=== PATIENT | male | born 1940 | race Hispanic/Latino ===

== ENCOUNTER 2017-08-21 17:36 | Emergency (ER) | payer MEDICARE, OTHER ==
[2017-08-21] MEDS ORDERED: MOTRIN PO ONE (20:18)
--- NOTE | 2017-08-21 20:23 | Emergency Department Report ---
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 Patient reports that he was in the main lobby today at the hospital and fell on the floor in the hospital while being on the stairs. He reports that there was a cover over the rail and when he grabbed the rail while walking down side ways the cover moved and he fell. Patient complains of pain to both shoulders right ring finger and lower back. Patient also complains of right knee pain. Patient reports he is not sure if he hit his head. Patient denies any loss of consciousness. Patient is accompanied by his granddaughter. Patient has not taken any pain medication since being here. He has a past medical history of diabetes hypertension prostate cancer bone cancer. He has not traveled out of the country last 30 days he has allergies to penicillin and chemotherapy drugs. He is opposed to getting blood products. MD Complaint: fall - Related Data Home Medications Medication Instructions Recorded Confirmed Last Taken Atorvastatin (Nf) [Lipitor (Nf)] 10 mg PO DAILY 10/03/14 10/03/14 Unknown Gabapentin 300 mg PO TID 10/03/14 10/03/14 Unknown Glimepiride [Amaryl] 2 mg PO QAM 10/03/14 10/03/14 Unknown Hydrochlorothiazide 25 mg PO DAILY 10/03/14 10/03/14 Unknown Lipase/Protease/Amylase [Creon Dr 1 each PO TID 10/03/14 10/03/14 Unknown 24,000 Units Capsule] Lisinopril [Zestril] 40 mg PO QDAY 10/03/14 10/03/14 Unknown Metoprolol Xl [Metoprolol 50 mg PO QDAY 10/03/14 10/03/14 Unknown SUCCINATE] Pantoprazole Sodium [Protonix] 40 mg PO PRN PRN 10/03/14 10/03/14 Unknown Previous Rx's Medication Instructions Recorded Last Taken Type Ketorolac [Toradol] 10 mg PO Q6H PRN #20 tablet 10/03/14 Unknown Rx Ondansetron [Zofran Odt] 4 mg PO Q4-6H PRN #20 tab.rapdis 10/03/14 Unknown Rx oxyCODONE /ACETAMINOPHEN [Percocet 1 - 2 tab PO Q6HR PRN #20 tablet 10/03/14 Unknown Rx 5/325] oxyCODONE /ACETAMINOPHEN [Percocet 1 tab PO Q6HR PRN #20 tablet 05/28/16 Unknown Rx 5/325] Diclofenac EC [Voltaren] 25 mg PO Q8HR #15 tablet 08/21/17 Unknown Rx Allergies Allergy/AdvReac Type Severity Reaction Status Date / Time Penicillins Allergy Hives Verified 10/02/14 23:47 Sulfa (Sulfonamide Allergy Hives Verified 10/02/14 23:47 Antibiotics) ED Review of Systems ROS: Stated complaint: FALL Other details as noted in HPI Eyes: denies: eye pain, eye discharge, vision change ENT: denies: ear pain, throat pain Cardiovascular: denies: chest pain, palpitations Endocrine: no symptoms reported Gastrointestinal: denies: abdominal pain, nausea, diarrhea Musculoskeletal: back pain, arthralgia, myalgia Skin: other (cut on). denies: rash, lesions Neurological: denies: headache, weakness, paresthesias Psychiatric: denies: anxiety, depression Hematological/Lymphatic: denies: easy bleeding, easy bruising ED Past Medical Hx - Past Medical History Hx Hypertension: Yes Hx Diabetes: Yes Hx Liver Disease: Yes Hx Renal Disease: Yes - Surgical History Additional Surgical History: Whipple and ulcer surgery - Social History Smoking Status: Never Smoker Substance Use Type: None - Medications Home Medications: Home Medications Medication Instructions Recorded Confirmed Last Taken Type Atorvastatin (Nf) [Lipitor (Nf)] 10 mg PO DAILY 10/03/14 10/03/14 Unknown History Gabapentin 300 mg PO TID 10/03/14 10/03/14 Unknown History Glimepiride [Amaryl] 2 mg PO QAM 10/03/14 10/03/14 Unknown History Hydrochlorothiazide 25 mg PO DAILY 10/03/14 10/03/14 Unknown History Ketorolac [Toradol] 10 mg PO Q6H PRN #20 tablet 10/03/14 Unknown Rx Lipase/Protease/Amylase [Creon Dr 1 each PO TID 10/03/14 10/03/14 Unknown History 24,000 Units Capsule] Lisinopril [Zestril] 40 mg PO QDAY 10/03/14 10/03/14 Unknown History Metoprolol Xl [Metoprolol 50 mg PO QDAY 10/03/14 10/03/14 Unknown History SUCCINATE] Ondansetron [Zofran Odt] 4 mg PO Q4-6H PRN #20 tab.rapdis 10/03/14 Unknown Rx Pantoprazole Sodium [Protonix] 40 mg PO PRN PRN 10/03/14 10/03/14 Unknown History oxyCODONE /ACETAMINOPHEN [Percocet 1 - 2 tab PO Q6HR PRN #20 tablet 10/03/14 Unknown Rx 5/325] oxyCODONE /ACETAMINOPHEN [Percocet 1 tab PO Q6HR PRN #20 tablet 05/28/16 Unknown Rx 5/325] Diclofenac EC [Voltaren] 25 mg PO Q8HR #15 tablet 08/21/17 Unknown Rx ED Physical Exam - General Limitations: Physical Limitation General appearance: alert, in no apparent distress - Head Head exam: Present: atraumatic, normocephalic - Eye Eye exam: Present: normal appearance - ENT ENT exam: Present: mucous membranes moist - Neck Neck exam: Present: normal inspection - Respiratory Respiratory exam: Present: normal lung sounds bilaterally. Absent: respiratory distress - Cardiovascular Cardiovascular Exam: Present: regular rate, normal rhythm. Absent: systolic murmur, diastolic murmur, rubs, gallop - GI/Abdominal GI/Abdominal exam: Present: soft, normal bowel sounds - Rectal Rectal exam: Present: deferred - Extremities Exam Extremities exam: Present: normal inspection - Expanded Upper Extremity Exam Right General: Present: other Shoulder Exam: Present: normal inspection, full ROM. Absent: tenderness, swelling Upper Arm exam: Present: full ROM, tenderness (S). Absent: swelling Elbow exam: Present: normal inspection, full ROM. Absent: tenderness Forearm Wrist exam: Present: swelling (forearm) - Back Exam Back exam: Present: normal inspection - Neurological Exam Neurological exam: Present: alert, oriented X3 - Psychiatric Psychiatric exam: Present: normal affect, normal mood - Skin Skin exam: Present: warm, dry, intact, normal color. Absent: rash ED Course Vital Signs 08/21/17 08/21/17 17:58 20:24 Temperature 98.0 F Pulse Rate 79 Respiratory 20 18 Rate Blood Pressure 136/85 O2 Sat by Pulse 98 Oximetry ED Medical Decision Making - Medical Decision Making Patient has been evaluated but this provider fast track. I discussed the patient will get an x-ray of his left humerus and lumbar sacral as well as give patient ibuprofen for pain. Patient verbalized understanding. Misty Hogan Manning Critical care attestation.: If time is entered above; I have spent that time in minutes in the direct care of this critically ill patient, excluding procedure time. ED Disposition Clinical Impression: Fall (on) (from) other stairs and steps, initial encounter Contusion of forearm, left Qualifiers: Encounter type: initial encounter Qualified Code(s): S50.12XA - Contusion of left forearm, initial encounter Disposition: DC- TO HOME OR SELFCARE Is pt being admited?: No Does the pt Need Aspirin: No Condition: Stable Instructions: Fall Prevention for Older Adults (ED) Additional Instructions: Please continue with your chronic meds. Take pain medication as prescribed. Please eat before taking this medication. Please drink plenty of fluids before taking this medicine. Please follow-up with your primary care provider which is Dr. Morse at [facility]. Prescriptions: Diclofenac EC [Voltaren] 25 mg PO Q8HR #15 tablet Referrals: PRIMARY CARE, [Primary Care Provider] - 3-5 Days Forms: Accompanied Note
--- NOTE | 2017-08-21 22:30 | XRay Report ---
FINAL REPORT EXAM: XR HUMERUS 2+V LT HISTORY: fall with left shoulder pain TECHNIQUE: Humerus two views left PRIORS: None. FINDINGS: There is narrowing at the glenohumeral joint space with some remottling in flattening of the humeral head consistent with degenerative change. No acute fracture is identified. No dislocation seen. AC joint appears intact. Adjacent bony and soft tissue structures are unremarkable. IMPRESSION: Degenerative changes at the glenohumeral joint space No acute fracture or dislocation identified.
--- NOTE | 2017-08-21 22:35 | XRay Report ---
FINAL REPORT EXAM: XR SPINE LUMBOSACRAL 2-3V HISTORY: fall with lower back pain TECHNIQUE: Lumbar spine three views PRIORS: None. FINDINGS: Multilevel degenerative disc changes are present. There is disc space narrowing at L1-L2, L2-L3, L3-L4, and L5-S1. Small marginal vertebral body osteophytes are present. There is a prominent lateral osteophyte seen on the right at L1-L2 which appears to be partially bridging. Hypertrophic facet joint changes are present throughout most prominent from L3-L4 through L5-S1. No evidence for spondylolisthesis. Vertebral bodies are normal in height and alignment. Spinous processes are intact. 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
[2017-08-21 23:10] VITALS: BP 133/76
[2017-08-21 23:17] LABS: Bilirubin,Urine NEG (Negative); Blood,Urine NEG (Negative); Color,Urine Yellow (Yellow); Protein,Urine <15 mg/dL mg/dL (Negative)
== END 2017-08-21 23:29 | disposition home or self-care (01) ==
LOC: ED 17:36
DX: S50.12XA Contusion of left forearm, initial encounter (principal); I10 Essential (primary) hypertension; E11.9 Type 2 diabetes mellitus without complications; W10.9XXA Fall (on) (from) unspecified stairs and steps, initial encounter; Y93.89 Activity, other specified; Y92.89 Other specified places as the place of occurrence of the external cause; Y99.8 Other external cause status; Z88.0 Allergy status to penicillin; Z88.2 Allergy status to sulfonamides; Z85.46 Personal history of malignant neoplasm of prostate
CPT/HCPCS: 72100; 81001; 99283

== ENCOUNTER 2018-03-10 00:09 | Inpatient (IN) | payer MEDICARE, OTHER ==
[2018-03-10] MEDS ORDERED: TYLENOL PO ONE (01:04)
--- NOTE | 2018-03-10 01:09 | Emergency Department Report ---
HPI - General Chief Complaint: Altered Mental Status Time Seen by Provider: 03/10/18 00:23 - HPI HPI: 77-year-old male presents to the emergency department via EMS from home with concern for some confusion and/or altered mental status. Patient's granddaughter's bedside and says that he was unable to answer questions that he normally does have the answer to like his address, where he has lived for a long time. The patient says he is unsure why he was sent in but does admit to being "disoriented" this morning. He denies any headache, vision change, slurred speech, chest pain. He has a history of pancreatic cancer with bony metastasis. He also has a history of some renal insufficiency, liver disease, diabetes and hypertension. His primary care physician is Dr. Morse. His oncology goes through [place]. He is not currently undergoing any type of chemotherapy or radiation. He recently had a nuclear bone scan and a CT scan of the head but says they have not yet received the results. ED Past Medical Hx - Past Medical History Hx Hypertension: Yes Hx Diabetes: Yes Hx Liver Disease: Yes Hx Renal Disease: Yes Additional medical history: bone and pancreatic cancer - Surgical History Past Surgical History?: Yes Additional Surgical History: Whipple and ulcer surgery - Social History Smoking Status: Never Smoker Substance Use Type: None - Medications Home Medications: Home Medications Medication Instructions Recorded Confirmed Last Taken Type Atorvastatin (Nf) [Lipitor (Nf)] 10 mg PO DAILY 10/03/14 10/03/14 Unknown History Gabapentin 300 mg PO TID 10/03/14 10/03/14 Unknown History Glimepiride [Amaryl] 2 mg PO QAM 10/03/14 10/03/14 Unknown History Ketorolac [Toradol] 10 mg PO Q6H PRN #20 tablet 10/03/14 Unknown Rx Lipase/Protease/Amylase [Markon Dr 1 each PO TID 10/03/14 10/03/14 Unknown History 24,000 Units Capsule] Lisinopril [Zestril] 40 mg PO QDAY 10/03/14 10/03/14 Unknown History Metoprolol Xl [Metoprolol 50 mg PO QDAY 10/03/14 10/03/14 Unknown History SUCCINATE] Ondansetron [Zofran Odt] 4 mg PO Q4-6H PRN #20 tab.rapdis 10/03/14 Unknown Rx Pantoprazole Sodium [Protonix] 40 mg PO PRN PRN 10/03/14 10/03/14 Unknown History hydroCHLOROthiazide 25 mg PO DAILY 10/03/14 10/03/14 Unknown History [Hydrochlorothiazide] oxyCODONE /ACETAMINOPHEN [Percocet 1 - 2 tab PO Q6HR PRN #20 tablet 10/03/14 Unknown Rx 5/325] Diclofenac EC [Voltaren] 25 mg PO Q8HR #15 tablet 08/21/17 Unknown Rx Abiraterone Acetate (Nf) [Zytiga 250 mg PO QID 03/10/18 03/10/18 Unknown History (Nf)] Lipase/Protease/Amylase [Miguel Blackwell 03/10/18 Unknown History 24,000 Units Capsule] Lipase/Protease/Amylase [Miguel Blackwell 72,000 units PO TID 03/10/18 03/10/18 Unknown History 24,000 Units Capsule] Morphine Sulfate [Morphine Sulfate 15 mg PO Q12HR 03/10/18 03/10/18 Unknown History ER] Tamsulosin HCl [Flomax] 0.8 mg PO DAILY 03/10/18 03/10/18 Unknown History oxyCODONE /ACETAMINOPHEN [Percocet 10 tab PO Q6HR PRN 03/10/18 03/10/18 Unknown History 5/325] predniSONE [Prednisone] 5 mg PO DAILY 03/10/18 03/10/18 Unknown History ED Review of Systems ROS: Stated complaint: AMS Other details as noted in HPI Comment: All other systems reviewed and negative Constitutional: denies: chills, fever Eyes: denies: eye pain, eye discharge, vision change ENT: denies: ear pain, throat pain Respiratory: denies: cough, shortness of breath, wheezing Cardiovascular: denies: chest pain, palpitations Gastrointestinal: denies: abdominal pain, nausea, diarrhea Genitourinary: denies: urgency, dysuria Musculoskeletal: denies: back pain, joint swelling, arthralgia Skin: denies: rash, lesions Neurological: confusion. denies: headache Physical Exam - Physical Exam Vital Signs: Vital Signs 03/10/18 03/10/18 03/10/18 00:12 00:18 00:27 Temperature 100.1 F H Pulse Rate 92 H 93 H Respiratory 14 20 Rate Blood Pressure 98/58 O2 Sat by Pulse 93 Oximetry 03/10/18 00:30 Temperature Pulse Rate 94 H Respiratory 15 Rate Blood Pressure 95/57 O2 Sat by Pulse 93 Oximetry Physical Exam: GENERAL: The patient is well-developed well-nourished. HENT: Normocephalic. Atraumatic. Patient has moist mucous membranes. EYES: Extraocular motions are intact. Pupils equal reactive to light bilaterally. NECK: Supple. Trachea is midline. CHEST/LUNGS: Clear to auscultation. There is no respiratory distress noted. HEART/CARDIOVASCULAR: Regular. There is no tachycardia. There is no murmur. ABDOMEN: Abdomen is soft, nontender. Patient has normal bowel sounds. There is no abdominal distention. SKIN: Skin is warm and dry. NEURO: The patient is awake, and cooperative. The patient has no focal neurologic deficits. The patient has normal speech. Cranial nerves II through XII grossly intact. MUSCULOSKELETAL: There is no tenderness or deformity. There is no evidence of acute injury. ED Course Vital Signs 03/10/18 03/10/18 03/10/18 00:12 00:18 00:27 Temperature 100.1 F H Pulse Rate 92 H 93 H Respiratory 14 20 Rate Blood Pressure 98/58 O2 Sat by Pulse 93 Oximetry 03/10/18 00:30 Temperature Pulse Rate 94 H Respiratory 15 Rate Blood Pressure 95/57 O2 Sat by Pulse 93 Oximetry ED Medical Decision Making - Lab Data Result diagrams: 03/10/18 00:33 03/10/18 00:33 - EKG Data -: EKG Interpreted by [facility] EKG shows normal: sinus rhythm, axis, intervals (slight prolongation of OK interval), QRS complexes (Q waves to the anterolateral and inferior leads), ST- T waves Rate: normal - EKG Data When compared to previous EKG there are: previous EKG unavailable Interpretation: other (mildly prolonged OK interval, sinus rhythm, Q waves to the anterior, lateral and inferior leads) - Radiology Data Radiology results: report reviewed EXAM: CT HEAD/BRAIN WO CON HISTORY: AMS TECHNIQUE: Routine axial imaging was obtained of the brain without IV contrast. FINDINGS: There is age related volume loss. There is diminished attenuation of the periventricular and deep white matter compatible with severe microvascular disease changes. There is no evidence of acute stroke or hemorrhage. The ventricular system is appropriate in size. The sinuses reveal patchy mucosal thickening in the left anterior ethmoid air cells. The mastoid air cells are well pneumatized. The calvarium appears intact. IMPRESSION: Age related volume loss with severe chronic microvascular disease changes. No evidence of acute stroke or hemorrhage. Transcribed By: RB Dictated By: RUBINA SOTELO MD Electronically Authenticated By: RUBINA SOTELO MD Signed Date/Time: 03/10/18 0200 - Medical Decision Making Patient presents with some recent confusion and her altered mental status. He is oriented to person, place and time but does admit to being disoriented this morning and family says that he is forgetting many things that he would usually never forget. He does not appear to have any focal, motor or sensory deficits and his cranial nerves are intact. CT of the head does not show any bleed, shift, mass, ischemia or any other acute process. Labs have been mostly unremarkable except for an elevated alkaline phosphatase level, but the patient does have a history of bone and pancreatic cancer. He also has a significant urinary tract infection. The patient's blood pressure has started to become hypotensive. He responds well to IV fluid resuscitation. He has received 2 L of IV fluid boluses and has been started on a maintenance fluid. He'll be admitted to the hospital for further evaluation and treatment was except for admission by the hospitalist, Dr. Haas. - Differential Diagnosis Sepsis, UTI, CVA, TIA, Dysrythmia Critical Care Time: No Critical care attestation.: If time is entered above; I have spent that time in minutes in the direct care of this critically ill patient, excluding procedure time. ED Disposition Clinical Impression: Confusion UTI (urinary tract infection) Qualifiers: Urinary tract infection type: acute cystitis Hematuria presence: without hematuria Qualified Code(s): N30.00 - Acute cystitis without hematuria Hypotension Qualifiers: Hypotension type: unspecified hypotension type Qualified Code(s): I95.9 - Hypotension, unspecified Disposition: DC-09 OP ADMIT IP TO THIS HOSP Is pt being admited?: Yes Condition: Fair Time of Disposition: 05:59
[2018-03-10 01:12] LABS: Basophils # (Auto) 0.2 K/mm3 (0.0-0.1); Basophils % (Auto) 1.2 % (0.0-1.8); Eosinophils # (Auto) 0.1 K/mm3 (0.0-0.4); Eosinophils % (Auto) 0.8 % (0.0-4.3); Hematocrit 34.9 % (35.5-45.6); Hemoglobin 11.9 gm/dl (11.8-15.2); Lymphocytes # (Auto) 0.8 K/mm3 (1.2-5.4); Lymphocytes % (Auto) 5.1 % (13.4-35.0); Mean Corpuscular HGB Conc 34 % (32-34); Mean Corpuscular Hemoglobin 33 pg (28-32); Mean Corpuscular Volume 97 fl (84-94); Monocytes # (Auto) 0.7 K/mm3 (0.0-0.8); Platelet Count 156 K/mm3 (140-440); Red Blood Count 3.62 M/mm3 (3.65-5.03); Red Cell Distribution Width 15.6 % (13.2-15.2)
[2018-03-10] MEDS ORDERED: NACL 0.9% 1000 ML 1,000 ML IV ONE (01:23)
[2018-03-10 01:40] LABS: Alanine Aminotransferase 9 units/L (7-56); Albumin 2.8 g/dL (3.9-5); BUN/Creatinine Ratio 12; Blood Urea Nitrogen 11 mg/dL (9-20); Calcium 8.5 mg/dL (8.4-10.2); Hemolysis Index 1
--- NOTE | 2018-03-10 02:07 | Cat Scan Report ---
FINAL REPORT EXAM: CT HEAD/BRAIN WO CON HISTORY: AMS TECHNIQUE: Routine axial imaging was obtained of the brain without IV contrast. FINDINGS: There is age related volume loss. There is diminished attenuation of the periventricular and deep white matter compatible with severe microvascular disease changes. There is no evidence of acute stroke or hemorrhage. The ventricular system is appropriate in size. The sinuses reveal patchy mucosal thickening in the left anterior ethmoid air cells. The mastoid air cells are well pneumatized. The calvarium appears intact. IMPRESSION: Age related volume loss with severe chronic microvascular disease changes. No evidence of acute stroke or hemorrhage.
[2018-03-10 02:42] LABS: Bacteria,Urine 2+ /HPF (Negative); Bilirubin,Urine NEG (Negative); Blood,Urine LG (Negative); Color,Urine Amber (Yellow); Mucus,Urine 3+ /HPF
[2018-03-10 02:48] LABS: WBC,Urine > 182.0 /HPF (0.0-6.0)
[2018-03-10 03:07] LABS: Amphetamine Screen,Urine PRESUMPTIVE NEGATIVE; Benzodiazepines Screen,Urine PRESUMPTIVE NEGATIVE; Cannabinoid Screen,Urine PRESUMPTIVE NEGATIVE; Cocaine Screen,Urine PRESUMPTIVE NEGATIVE; Methadone Screen,Urine PRESUMPTIVE NEGATIVE
[2018-03-10] MEDS ORDERED: LEVAQUIN 750MG/150ML 750 MG/150 ML BAG IV ONE (03:29)
[2018-03-10 03:44] LABS: Opiate Screen,Urine PRESUMPTIVE POSITIVE
--- NOTE | 2018-03-10 08:30 | History and Physical Report ---
History of Present Illness Date of examination: 03/10/18 Date of admission: 03/10/18 03:31 Chief complaint: Altered mental status, confusion Generalized weakness Medications and Allergies Allergies Allergy/AdvReac Type Severity Reaction Status Date / Time Penicillins Allergy Hives Verified 10/02/14 23:47 Sulfa (Sulfonamide Allergy Hives Verified 10/02/14 23:47 Antibiotics) Home Medications Medication Instructions Recorded Confirmed Last Taken Type Atorvastatin (Nf) [Lipitor (Nf)] 10 mg PO DAILY 10/03/14 10/03/14 Unknown History Gabapentin 300 mg PO TID 10/03/14 10/03/14 Unknown History Glimepiride [Amaryl] 2 mg PO QAM 10/03/14 10/03/14 Unknown History Ketorolac [Toradol] 10 mg PO Q6H PRN #20 tablet 10/03/14 Unknown Rx Lipase/Protease/Amylase [Miguel Blackwell 1 each PO TID 10/03/14 10/03/14 Unknown History 24,000 Units Capsule] Lisinopril [Zestril] 40 mg PO QDAY 10/03/14 10/03/14 Unknown History Metoprolol Xl [Metoprolol 50 mg PO QDAY 10/03/14 10/03/14 Unknown History SUCCINATE] Ondansetron [Zofran Odt] 4 mg PO Q4-6H PRN #20 tab.rapdis 10/03/14 Unknown Rx Pantoprazole Sodium [Protonix] 40 mg PO PRN PRN 10/03/14 10/03/14 Unknown History hydroCHLOROthiazide 25 mg PO DAILY 10/03/14 10/03/14 Unknown History [Hydrochlorothiazide] oxyCODONE /ACETAMINOPHEN [Percocet 1 - 2 tab PO Q6HR PRN #20 tablet 10/03/14 Unknown Rx 5/325] Diclofenac EC [Voltaren] 25 mg PO Q8HR #15 tablet 08/21/17 Unknown Rx Abiraterone Acetate (Nf) [Zytiga 250 mg PO QID 03/10/18 03/10/18 Unknown History (Nf)] Lipase/Protease/Amylase [Miguel Blackwell 03/10/18 Unknown History 24,000 Units Capsule] Lipase/Protease/Amylase [Miguel Blackwell 72,000 units PO TID 03/10/18 03/10/18 Unknown History 24,000 Units Capsule] Morphine Sulfate [Morphine Sulfate 15 mg PO Q12HR 03/10/18 03/10/18 Unknown History ER] Tamsulosin HCl [Flomax] 0.8 mg PO DAILY 03/10/18 03/10/18 Unknown History oxyCODONE /ACETAMINOPHEN [Percocet 10 tab PO Q6HR PRN 03/10/18 03/10/18 Unknown History 5/325] predniSONE [Prednisone] 5 mg PO DAILY 03/10/18 03/10/18 Unknown History Active Meds: Active Medications Heparin Sodium (Porcine) (Heparin) 5,000 unit SUB-Q Q12HR LUIS Exam - Physical Exam Narrative exam: GEN:Not in acute distress, lying in bed HEENT: Normocephalic, atraumatic, Neck: supple, No JVD Lungs: Clear to auscultation bilaterally, no crackles Heart:S1 and S2 reg, no murmurs, rubs or gallop Abd:soft, non tender, non distended, Normal bowel sounds Ext: No edema, clubbing or cyanosis Neuro: Awake, alert, oriented x 3, no focal signs - Constitutional Vitals: Temp Pulse Resp BP Pulse Ox 100.1 F H 62 16 106/52 97 03/10/18 00:27 03/10/18 06:48 03/10/18 07:10 03/10/18 06:48 03/10/18 07:10 Results - Labs CBC & Chem 7: 03/10/18 00:33 03/10/18 00:33 Labs: Abnormal lab results 03/10/18 03/10/18 03/10/18 Range/Units 00:33 00:33 04:04 WBC 14.9 H (4.5-11.0) K/mm3 RBC 3.62 L (3.65-5.03) M/mm3 Hct 34.9 L (35.5-45.6) % MCV 97 H (84-94) fl MCH 33 H (28-32) pg RDW 15.6 H (13.2-15.2) % Lymph % (Auto) 5.1 L (13.4-35.0) % Lymph # 0.8 L (1.2-5.4) K/mm3 Baso # 0.2 H (0.0-0.1) K/mm3 Seg Neutrophils % 87.9 H (40.0-70.0) % Seg Neutrophils # 13.1 H (1.8-7.7) K/mm3 Lactic Acid 3.40 H* (0.7-2.0) mmol/L Alkaline Phosphatase 453 H (35-129) units/L Total Protein 5.7 L (6.3-8.2) g/dL Albumin 2.8 L (3.9-5) g/dL Urine WBC (Auto) (0.0-6.0) /HPF 03/10/18 03/10/18 Range/Units 05:27 Unknown WBC (4.5-11.0) K/mm3 RBC (3.65-5.03) M/mm3 Hct (35.5-45.6) % MCV (84-94) fl MCH (28-32) pg RDW (13.2-15.2) % Lymph % (Auto) (13.4-35.0) % Lymph # (1.2-5.4) K/mm3 Baso # (0.0-0.1) K/mm3 Seg Neutrophils % (40.0-70.0) % Seg Neutrophils # (1.8-7.7) K/mm3 Lactic Acid 6.80 H* (0.7-2.0) mmol/L Alkaline Phosphatase (35-129) units/L Total Protein (6.3-8.2) g/dL Albumin (3.9-5) g/dL Urine WBC (Auto) > 182.0 H (0.0-6.0) /HPF Assessment and Plan UTI Sepsis Prostate cancer Bone cancer
[2018-03-10] MEDS ORDERED: NORCO 5/325 PO PRN (08:38)
[2018-03-10] MEDS ORDERED: SODIUM CHLORIDE FLUSH SYRINGE 10 ML IV PRN (08:38)
[2018-03-10] MEDS: SODIUM CHLORIDE FLUSH SYRINGE 10 ML IV SCH ×2 (10:40→21:34)
[2018-03-10] MEDS: HEPARIN SUB-Q SCH ×2 (11:40→21:22)
[2018-03-11] MEDS: ZOFRAN IV PRN (01:30)
[2018-03-11 05:47] LABS: Basophils % (Auto) 0.4 % (0.0-1.8); Eosinophils # (Auto) 0.1 K/mm3 (0.0-0.4); Eosinophils % (Auto) 0.7 % (0.0-4.3); Hematocrit 29.1 % (35.5-45.6); Hemoglobin 9.9 gm/dl (11.8-15.2); Lymphocytes % (Auto) 13.6 % (13.4-35.0); Mean Corpuscular HGB Conc 34 % (32-34); Mean Corpuscular Hemoglobin 33 pg (28-32); Mean Corpuscular Volume 97 fl (84-94); Monocytes # (Auto) 0.4 K/mm3 (0.0-0.8); Monocytes % (Auto) 4.8 % (0.0-7.3); Red Blood Count 2.99 M/mm3 (3.65-5.03); Red Cell Distribution Width 15.7 % (13.2-15.2)
[2018-03-11 05:57] LABS: Platelet Count 89 K/mm3 (140-440)
[2018-03-11] MEDS: LEVAQUIN 750MG/150ML 750 MG/150 ML BAG IV SCH (10:00)
[2018-03-11] MEDS: SODIUM CHLORIDE FLUSH SYRINGE 10 ML IV SCH ×2 (10:00→21:27)
[2018-03-11] MEDS: HEPARIN SUB-Q SCH ×2 (10:00→21:26)
[2018-03-11] MEDS: ZESTRIL PO SCH (13:00)
[2018-03-11] MEDS: DELTASONE PO SCH (13:00)
[2018-03-11] MEDS ORDERED: ABIRATERONE ACETATE 250 MG PO SCH (14:00)
[2018-03-11] MEDS ORDERED: LIPASE PO SCH (14:00)
[2018-03-11] MEDS: TOPROL XL PO SCH (14:00)
[2018-03-11] MEDS: NEURONTIN PO SCH ×2 (14:00→21:26)
[2018-03-11] MEDS ORDERED: AMYLASE PO SCH (14:00)
[2018-03-11] MEDS: PROTONIX PO SCH ×2 (14:00→21:25)
[2018-03-11] MEDS ORDERED: PROTEASE PO SCH (14:00)
[2018-03-11] MEDS: CREON DR 12,000 UNITS PO SCH ×2 (14:22→18:07)
[2018-03-11] MEDS: MS CONTIN ER PO SCH ×2 (14:23→21:31)
--- NOTE | 2018-03-11 16:36 | Progress Note ---
Hospitalist Physical - Constitutional Vitals: Temp Pulse Resp BP Pulse Ox 97.9 F 76 20 127/65 95 03/11/18 16:30 03/11/18 16:30 03/11/18 16:30 03/11/18 16:30 03/11/18 16:30 Results - Labs CBC & Chem 7: 03/11/18 04:28 03/10/18 00:33 Labs: Laboratory Last Values WBC 7.6 K/mm3 (4.5-11.0) 03/11/18 04:28 RBC 2.99 M/mm3 (3.65-5.03) L 03/11/18 04:28 Hgb 9.9 gm/dl (11.8-15.2) L 03/11/18 04:28 Hct 29.1 % (35.5-45.6) L 03/11/18 04:28 MCV 97 fl (84-94) H 03/11/18 04:28 MCH 33 pg (28-32) H 03/11/18 04:28 MCHC 34 % (32-34) 03/11/18 04:28 RDW 15.7 % (13.2-15.2) H 03/11/18 04:28 Plt Count 89 K/mm3 (140-440) L 03/11/18 04:28 Lymph % (Auto) 13.6 % (13.4-35.0) 03/11/18 04:28 [place] % (Auto) 4.8 % (0.0-7.3) 03/11/18 04:28 Eos % (Auto) 0.7 % (0.0-4.3) 03/11/18 04:28 Baso % (Auto) 0.4 % (0.0-1.8) 03/11/18 04:28 Lymph # 1.0 K/mm3 (1.2-5.4) L 03/11/18 04:28 [place] # 0.4 K/mm3 (0.0-0.8) 03/11/18 04:28 Eos # 0.1 K/mm3 (0.0-0.4) 03/11/18 04:28 Baso # 0.0 K/mm3 (0.0-0.1) 03/11/18 04:28 Seg Neutrophils % 80.5 % (40.0-70.0) H 03/11/18 04:28 Seg Neutrophils # 6.2 K/mm3 (1.8-7.7) 03/11/18 04:28 Sodium 141 mmol/L (137-145) 03/10/18 00:33 Potassium 3.9 mmol/L (3.6-5.0) 03/10/18 00:33 Chloride 100.9 mmol/L (98-107) 03/10/18 00:33 Carbon Dioxide 24 mmol/L (22-30) 03/10/18 00:33 Anion Gap 20 mmol/L 03/10/18 00:33 BUN 11 mg/dL (9-20) 03/10/18 00:33 Creatinine 0.9 mg/dL (0.8-1.5) 03/10/18 00:33 Estimated GFR > 60 ml/min 03/10/18 00:33 BUN/Creatinine Ratio 12 % 03/10/18 00:33 Glucose 83 mg/dL (75-100) 03/10/18 00:33 POC Glucose 114 (70-105) H 03/11/18 11:26 Hemoglobin A1c 5.8 % (4-6) 03/10/18 09:50 Lactic Acid 1.70 mmol/L (0.7-2.0) 03/10/18 09:50 Calcium 8.5 mg/dL (8.4-10.2) 03/10/18 00:33 Total Bilirubin 1.10 mg/dL (0.1-1.2) 03/10/18 00:33 AST 36 units/L (5-40) 03/10/18 00:33 ALT 9 units/L (7-56) 03/10/18 00:33 Alkaline Phosphatase 453 units/L (35-129) H 03/10/18 00:33 Troponin T < 0.010 ng/mL (0.00-0.029) 03/10/18 00:33 Total Protein 5.7 g/dL (6.3-8.2) L 03/10/18 00:33 Albumin 2.8 g/dL (3.9-5) L 03/10/18 00:33 Albumin/Globulin Ratio 1.0 % 03/10/18 00:33 TSH 1.980 mlU/mL (0.270-4.200) 03/10/18 00:33 Urine Color [place] (Yellow) 03/10/18 Unknown Urine Turbidity Cloudy (Clear) 03/10/18 Unknown Urine pH 5.0 (5.0-7.0) 03/10/18 Unknown Ur Specific [place] 1.025 (1.003-1.030) 03/10/18 Unknown Urine Protein 100 mg/dl mg/dL (Negative) 03/10/18 Unknown Urine Glucose (UA) Neg mg/dL (Negative) 03/10/18 Unknown Urine Ketones Neg mg/dL (Negative) 03/10/18 Unknown Urine Blood Lg (Negative) 03/10/18 Unknown Urine Nitrite Neg (Negative) 03/10/18 Unknown Urine Bilirubin Neg (Negative) 03/10/18 Unknown Urine Urobilinogen 4.0 mg/dL (<2.0) 03/10/18 Unknown Ur Leukocyte Esterase Mod (Negative) 03/10/18 Unknown Urine WBC (Auto) > 182.0 /HPF (0.0-6.0) H 03/10/18 Unknown Urine RBC (Auto) 122.0 /HPF (0.0-6.0) 03/10/18 Unknown U Epithel Cells (Auto) 3.0 /HPF (0-13.0) 03/10/18 Unknown Urine Bacteria (Auto) 2+ /HPF (Negative) 03/10/18 Unknown Ur Transition Epith Cell 1 /HPF 03/10/18 Unknown Urine Mucus 3+ /HPF 03/10/18 Unknown Urine Opiates Screen Presumptive positive 03/10/18 Unknown Urine Methadone Screen Presumptive negative 03/10/18 Unknown Ur Barbiturates Screen Presumptive negative 03/10/18 Unknown Ur Phencyclidine Scrn Presumptive negative 03/10/18 Unknown Ur Amphetamines Screen Presumptive negative 03/10/18 Unknown U Benzodiazepines Scrn Presumptive negative 03/10/18 Unknown Urine Cocaine Screen Presumptive negative 03/10/18 Unknown U Marijuana (THC) Screen Presumptive negative 03/10/18 Unknown Drugs of Abuse Note Disclamer 03/10/18 Unknown Plasma/Serum Alcohol < 0.01 % (0-0.07) 03/10/18 00:33 Blood Type O POSITIVE 03/10/18 09:50 Antibody Screen Negative 03/10/18 09:50
[2018-03-11] MEDS: NACL 0.9% 1000 ML 1,000 ML IV SCH (20:14)
[2018-03-11] MEDS ORDERED: FLOMAX PO SCH (22:00)
[2018-03-12] MEDS: NACL 0.9% 1000 ML 1,000 ML IV SCH (05:51)
[2018-03-12] MEDS: CREON DR 12,000 UNITS PO SCH ×3 (07:30→16:30)
[2018-03-12] MEDS: LEVAQUIN 750MG/150ML 750 MG/150 ML BAG IV SCH (09:03)
[2018-03-12] MEDS: NEURONTIN PO SCH ×2 (09:03→13:08)
[2018-03-12] MEDS: HEPARIN SUB-Q SCH (09:04)
[2018-03-12] MEDS: MS CONTIN ER PO SCH (09:04)
[2018-03-12] MEDS: PROTONIX PO SCH (09:04)
[2018-03-12] MEDS: TOPROL XL PO SCH (09:06)
[2018-03-12] MEDS: ZESTRIL PO SCH (09:06)
[2018-03-12] MEDS: SODIUM CHLORIDE FLUSH SYRINGE 10 ML IV SCH (09:06)
[2018-03-12] MEDS: DELTASONE PO SCH (09:08)
--- NOTE | 2018-03-12 10:17 | XRay Report ---
ABDOMEN, 2 views: History: Nausea vomiting. Surgical clips are noted in the upper quadrants, correlate with history. There is no evidence for dilated bowel, large air-fluid levels or free air. Normal stool in the colon. There appear to be scattered sclerotic bony lesions in the pelvis and proximal femurs concerning for metastatic lesions. IMPRESSION: Unremarkable bowel gas pattern. Questionable sclerotic bony lesions in the pelvis, metastatic disease?
--- NOTE | 2018-03-12 10:59 | Discharge Summary ---
Providers - Providers Date of Admission: 03/10/18 03:31 Date of discharge: 03/12/18 Attending physician: GLENN FLORES Primary care physician: VENUS AVERY MD Hospitalization Condition: Fair Disposition: DC-01 TO HOME OR SELFCARE Core Measure Documentation - Palliative Care Palliative Care/ Comfort Measures: Not Applicable - Core Measures Any of the following diagnoses?: none Exam - Constitutional Vitals: Temp Pulse Resp BP Pulse Ox 98.9 F 58 L 20 122/68 96 03/12/18 08:03 03/12/18 09:06 03/12/18 09:04 03/12/18 09:06 03/12/18 08:03 Plan Activity: advance as tolerated Diet: low fat, low cholesterol, low salt Additional Instructions: 1.Follow up with PCP in 1 week. 2.Follow up with Oncologist at [place] in 1 week. Follow up with: PRIMARY CAREMD [Primary Care Provider] - 3-5 Days
[2018-03-12] MEDS: ZOFRAN IV PRN (13:08)
--- NOTE | 2018-03-12 13:08 | Query-Altered Level of Consc. ---
Pham Cota___Linda Date:____03/12/2018 Pressure Dispatcher/CDS:____Juliette Phone#:__[phone] Exercise your independent professional judgment when responding to this query. Questions asked do not imply a particular answer is desired or expected. We greatly appreciate your clarification on this issue. Clinical Documentation States: 77 Year old male was admitted on 03/10/2018 for some confusion and/or altered mental status. Patient's granddaughter's bedside and says that he was unable to answer questions that he normally does have the answer to like his address, where he has lived for a long time. The ED note stated "Hypotension Qualifiers: Hypotension type: unspecified hypotension type Qualified Code(s): I95.9 - Hypotension, unspecified." The IM H&P note stated "Chief complaint: Altered mental status, confusion Generalized weakness." Please provide an appropriate diagnosis clarifying the Etiology and Acuity of this clinical scenario: [ ] Metabolic Encephalopathy [x ] Toxic Encephalopathy [ ] Toxic - Metabolic Encephalopathy [ ] Septic Encephalopathy with Sepsis [ ] Septic Encephalopathy without Sepsis [ ] Acute Hepatic Encephalopathy [ ] Subacute Hepatic Encephalopathy [ ] Encephalopathy [ ] Other: [ ] Unable To Determine [ ]Comment/Explanation: Present on Admission: [ x] Yes (Y) [ ] Clinically undeterminable (W) [ ] No (N) Please also document response in your Progress Notes and/or Discharge Summary and indicate if the condition was present on admission. ARBEND
[2018-03-12 16:04] VITALS: BP 128/69
== END 2018-03-12 17:44 | disposition home health service (06) | DRG 871 ==
LOC: ED 00:09 → 4A 03:31
PROVIDERS: ADMIT Internal Medicine; ATTEND Internal Medicine
DX: A41.9 Sepsis, unspecified organism (principal); G92 Toxic encephalopathy; C79.51 Secondary malignant neoplasm of bone; N30.00 Acute cystitis without hematuria; I95.9 Hypotension, unspecified; Z88.0 Allergy status to penicillin; Z88.2 Allergy status to sulfonamides; Z79.899 Other long term (current) drug therapy; C61 Malignant neoplasm of prostate; E11.9 Type 2 diabetes mellitus without complications; I10 Essential (primary) hypertension; N28.9 Disorder of kidney and ureter, unspecified; K76.9 Liver disease, unspecified
CPT/HCPCS: 36415; 70450; 74019; 80053; 80307; 80320; 81001; 82140; 82962; 83036; 84443; 84484; 85025; 86850; 86900; 86901; 87040; 87086; 93005; 93010; 96361; 96365; A9270-GY; G0480; J1644; J1956; J2405; J7030; J7512